=== PATIENT | female | born 1950 | race Caucasian/White ===

== ENCOUNTER 2022-09-02 13:47 | Outpatient (CLI) | payer BC | END 2022-09-02 23:59 | disposition home or self-care (01) | LOC: RAD 13:47 | PROVIDERS: ATTEND Internal Medicine Cardiovascular Disease | DX: I08.8 Other rheumatic multiple valve diseases (principal); R01.1 Cardiac murmur, unspecified; R55 Syncope and collapse | CPT/HCPCS: 93306 ==

== ENCOUNTER 2022-09-27 01:55 | Emergency (ER) | payer BC ==
[~2022-09-27] VITALS: Ht 157.5 cm; Wt 48.2 kg
[2022-09-27 02:23] LABS: BASOPHILS % (AUTO) 1.1 % (0-1); EOSINOPHILS # (AUTO) 0.2 X10'3 (0-0.9); EOSINOPHILS % (AUTO) 5.1 % (0-6); HEMATOCRIT 32.6 % (35.0-45.0); HEMOGLOBIN 10.7 g/dl (12.0-16.0); LYMPHOCYTES # (AUTO) 1.5 X10'3 (1.1-4.8); LYMPHOCYTES % (AUTO) 39.6 % (21-51); MEAN CORPUSCULAR HEMOGLOBIN 30.7 PG (27.0-31.0); MEAN CORPUSCULAR VOLUME 93.1 FL (78-98); MEAN PLATELET VOLUME 7.1 FL (7.4-10.4); MONOCYTES # (AUTO) 0.5 X10'3 (0-0.9); MONOCYTES % (AUTO) 13.2 % (2-12); NEUTROPHILS # (AUTO) 1.6 X10'3 (1.8-7.7); PLATELET COUNT 286 X10'3 (140-440); RED CELL DISTRIBUTION WIDTH 13.2 % (11.5-14.5); WHITE BLOOD COUNT 3.9 X10'3 (4.5-11.0)
[2022-09-27 02:39] LABS: ALANINE AMINOTRANSFERASE 18 U/L (12-78); ALBUMIN 3.7 G/DL (3.4-5.0); ALKALINE PHOSPHATASE 74 IU/L (46-116); ANION GAP 7 (8-16); ASPARTATE AMINO TRANSFERASE 20 U/L (10-37); BILIRUBIN,TOTAL 0.2 MG/DL (0.1-1.0); BLOOD UREA NITROGEN 14 MG/DL (7-18); BUN/CREATININE RATIO 19.2 (6.6-38.0); CALCIUM 8.8 MG/DL (8.5-10.1); CHLORIDE 100 MMOL/L (99-107); CREATININE 0.73 MG/DL (0.40-0.90); GLUCOSE 144 MG/DL (70-104); POTASSIUM 3.6 MMOL/L (3.5-5.1); SODIUM 136 MMOL/L (135-145); TOTAL PROTEIN 7.4 G/DL (6.4-8.2); eGFR 78 ML/MIN
[2022-09-27] MEDS ORDERED: normal saline 1000ML IV soln IVB ONE (03:00)
[2022-09-27 04:26] LABS: CLARITY,URINE CLEAR (Clear); COLOR,URINE YELLOW (Yellow); GLUCOSE, URINE NEGATIVE (Neg); KETONES,URINE NEGATIVE (Neg); LEUKOCYTE ESTERASE ,URINE NEGATIVE (Neg); NITRITES, URINE NEGATIVE (Neg); OCCULT BLOOD,URINE NEGATIVE (Neg); PH,URINE 6.5 (4.8-8.0); PROTEIN,URINE NEGATIVE (Neg); UROBILINOGEN,URINE 0.2 E.U/dL (0.2-1.0)
[2022-09-27 04:27] LABS: UA COLLECTION TYPE CLN CATCH MIDSTREAM
[2022-09-27 05:17] VITALS: BP 125/61
== END 2022-09-27 05:20 | disposition home or self-care (01) ==
LOC: ER 01:56
DX: R55 Syncope and collapse (principal); I10 Essential (primary) hypertension
CPT/HCPCS: 36415; 71045; 80053; 81003; 83735; 83880; 84484; 85025; 93005; 96360; 99285; J7030

== ENCOUNTER 2022-10-01 08:01 | Outpatient (CLI) | payer BC ==
[2022-10-01] VITALS (21 sets, daily range): BP systolic 107–141; BP diastolic 60–84
== END 2022-10-01 23:59 | disposition home or self-care (01) ==
LOC: CARD DIAG 08:01
PROVIDERS: ATTEND Internal Medicine Cardiovascular Disease
DX: R42 Dizziness and giddiness (principal); R53.83 Other fatigue
CPT/HCPCS: 93660

== ENCOUNTER 2023-05-22 09:41 | Outpatient (CLI) | payer BC | END 2023-05-22 23:59 | disposition home or self-care (01) | LOC: VAS 09:41 | PROVIDERS: ATTEND Nurse Practitioner Family | DX: I77.3 Arterial fibromuscular dysplasia (principal); R01.1 Cardiac murmur, unspecified; R00.1 Bradycardia, unspecified; I10 Essential (primary) hypertension; R55 Syncope and collapse; G47.00 Insomnia, unspecified; I00 Rheumatic fever without heart involvement | CPT/HCPCS: 93880 ==

== ENCOUNTER 2025-06-02 09:36 | Outpatient (CLI) | payer BC ==
--- NOTE | 2025-06-02 13:26 | VASCULAR REPORT ---
[facility] Vascular Department [facility] [address] [place] [address] [email or web address] Name : DIANE GARCIA Date : 06/02/2025 SAGE Accession# : [id number] Birthdate : 1950 Sex : F Age : 74Y Baller Tender : Mackenzie Najera RDMS/RVT Referring Dr. : EVONNE RODRIGUEZ Preliminary Report The above named patient was referred for a NON-INVASIVE CEREBROVASCULAR EVALUATION. The evaluation includes grayscale imaging, color flow Doppler and spectral analysis of the bilateral carotid and vertebral arteries. Patient OUT-PATIENT L tetihnBilateral Indications Questionable hx left fibromuscular dysplasia Doppler Spectral Velocity Analysis Right Left pCCA 98/23 cm/s pCCA 121/24 cm/s dCCA 89/19 cm/s dCCA 77/20 cm/s ECA 81/ cm/s ECA 82/ cm/s pICA 67/16 cm/s pICA 47/15 cm/s [place] 63/20 cm/s [place] 74/24 cm/s dICA Vert 98/26 cm/s dICA 78/25 cm/s 38/12 cm/s Vert. 50/17 cm/s Subcl. 109/ cm/s Subcl. 135/ cm/s ICA/CCA 1.10 ICA/CCA 1.00 Impression: Imaging reveals no evidence of significant stenosis and/or occlusion of the Carotid Arteries bilaterally. <50% stenosis visualized in the Common Carotid Arteries, Internal Carotid Arteries, and External Carotid Arteries bilaterally. Antegrade flow visualized in Vertebral Arteries bilaterally. Multiphasic Subclavian Arteries bilaterally. No sonographic evidence of fibromuscular dysplasia.
== END 2025-06-02 23:59 | disposition home or self-care (01) ==
LOC: RAD 09:36
PROVIDERS: ATTEND Nurse Practitioner Family
DX: I10 Essential (primary) hypertension (principal); R00.1 Bradycardia, unspecified; I77.3 Arterial fibromuscular dysplasia; R55 Syncope and collapse; R01.1 Cardiac murmur, unspecified; G47.00 Insomnia, unspecified
CPT/HCPCS: 93880